=== PATIENT | male | born 1975 | race American Indian/Alaskan Native ===

== ENCOUNTER 2020-05-31 07:13 | Day surgery (SDC) | payer BC ==
[2020-05-31] MEDS ORDERED: SODIUM CHLORIDE 0.9% 1000 ML 1,000 ML ONE (07:38)
[2020-05-31] MEDS: SODIUM CHLORIDE 0.9% 1000 ML 1,000 ML IV SCH ×2 (07:46→08:55)
[2020-05-31] MEDS ORDERED: SODIUM CHLORIDE 0.9% 500 ML 500 ML IV SCH (08:00)
[2020-05-31 08:09] LABS: Basophils # (Auto) 0.1 K/mm3 (0.0-0.1); Basophils % (Auto) 0.8 % (0.0-1.8); Eosinophils # (Auto) 0.3 K/mm3 (0.0-0.4); Eosinophils % (Auto) 2.6 % (0.0-4.3); Hematocrit 47.4 % (35.5-45.6); Hemoglobin 16.2 gm/dl (11.8-15.2); Lymphocytes # (Auto) 3.2 K/mm3 (1.2-5.4); Lymphocytes % (Auto) 28.5 % (13.4-35.0); Mean Corpuscular HGB Conc 34 % (32-34); Mean Corpuscular Volume 95 fl (84-94); Monocytes # (Auto) 0.9 K/mm3 (0.0-0.8); Monocytes % (Auto) 8.4 % (0.0-7.3); Platelet Count 255 K/mm3 (140-440); Red Blood Count 4.99 M/mm3 (3.65-5.03); Red Cell Distribution Width 14.5 % (13.2-15.2)
[2020-05-31 08:19] LABS: INR 1.04 (0.87-1.13)
[2020-05-31 08:23] LABS: BUN/Creatinine Ratio 16; Blood Urea Nitrogen 16 mg/dL (9-20); Calcium 9.3 mg/dL (8.4-10.2); Hemolysis Index 4
[2020-05-31] MEDS ORDERED: fentaNYL 100 MCG/2 ML INJ ONE (08:27)
[2020-05-31] MEDS ORDERED: HEPARIN/NS 5000 UNIT/500ML 1,000 ML IR ONE (08:27)
[2020-05-31] MEDS ORDERED: VERAPAMIL 5 MG/2 ML INJ ONE (08:27)
[2020-05-31] MEDS ORDERED: LIDOCAINE (2%) 20 MG/1 ML VIAL 20 ML MDV INFILTRATI ONE (08:27)
[2020-05-31] MEDS ORDERED: HEPARIN 10,000 UNITS/10 ML VIAL ONE (08:27)
[2020-05-31] MEDS ORDERED: NITROGLYCERIN SYRINGE 3 ML ONE (08:28)
[2020-05-31] MEDS ORDERED: ASPIRIN EC 325 MG TAB PO ONE (08:30)
[2020-05-31] MEDS: MIDAZOLAM 2 MG/2 ML INJ ONE ×2 (08:55→09:02)
--- NOTE | 2020-05-31 09:33 | Cardiac Catherization Report ---
LEFT HEART CATHETERIZATION CLINICAL INFORMATION: This is a 44-year-old -[place] gentleman who has hypertension, hyperlipidemia, family history of premature CAD. He has recurrent chest pain with the ER admissions, here for suspected coronary artery disease. Procedure was done via the right with moderate sedation started at 8:55 a.m., finished at 9:15 which is 20 minutes of moderate sedation. Procedure was done via the right radial artery, sterile technique, local anesthesia, 6-Citizen [place] radial sheath inserted. PROCEDURE FINDINGS: There is a short left main, it is large and patent, bifurcates into large LAD that is patent with mild luminal irregularities. Diagonal 1, diagonal 2 are small caliber vessel, patent. Circumflex is a medium caliber vessel, patent. OM1 is a large caliber vessel, patent. OM2 is a medium caliber vessel that is patent. RCA is a large dominant vessel, proximal is patent, distal is patent, bifurcates into [id number] caliber PDA, which has a proximal 40% lesion focal lesion and PLV is patent. LV gram done in MACEDONIAN and CROWDER view shows normal LV function, EF 55-60%. LVEDP 14 mmHg, LV is 100. Aortic is 100/68. No gradient across the aortic valve on pullback. A 5-[place]izen [place] catheter was taken over guidewire, 6-[place] radial sheath was discontinued. Radial band applied. No hematoma, no bleeding. SUMMARY: Left main patent, LAD patent with mild luminal irregularities. Circumflex patent, OM1, OM2 large patent, RCA large patent, but PDA proximal 40%, nonobstructive coronary artery disease. Continue risk factor modification, details discussed with the patient, the patient's family. JOB# [id number] LEAH/WENCESLAO
[2020-05-31] MEDS ORDERED: traMADol 50 MG TAB PO PRN (09:46)
--- NOTE | 2020-05-31 09:48 | Short Stay Summary ---
Short Stay Documentation Date of service: 05/31/20 - History H&P: obtained from office - Allergies and Medications Current Medications: Allergies cephalexin [From Keflex] Adverse Reaction (Verified 05/31/20 07:39) Nausea nausea and vomiting diarrhea Penicillins Adverse Reaction (Verified 05/31/20 07:40) Nausea nausea and vomiting Sulfa (Sulfonamide Antibiotics) Adverse Reaction (Verified 05/31/20 07:39) Nausea nausea and vomiting Home Medications Medication Instructions Recorded Confirmed Last Taken Type Lisinopril [Zestril] 10 mg PO DAILY 05/31/20 05/31/20 05/30/20 History Active Medications Sodium Chloride (Nacl 0.9% 1000 Ml) 1,000 mls @ 42 mls/hr IV DIRECT ROBERT Last Admin: 05/31/20 08:55 Dose: 42 mls/hr Documented by: - Brief post op/procedure progress note Date of procedure: 05/31/20 Pre-op diagnosis: cp Post-op diagnosis: same Procedure: see report Anesthesia: local Estimated blood loss: none Pathology: none - Disposition Condition at discharge: Good Disposition: [id number]-01 TO HOME OR SELFCARE - Discharge Diagnoses (1) CAD (coronary artery disease) Status: Acute Qualifiers: Coronary Disease-Associated Artery/Lesion type: [place] artery [place] vs. transplanted heart: [place] heart Associated angina: without angina Qualified Code(s): I25.10 - Atherosclerotic heart disease of [place] coronary artery without angina pectoris (2) Hyperlipemia, mixed Status: Chronic (3) Chest pain Status: Chronic Qualifiers: Chest pain type: unspecified Qualified Code(s): R07.9 - Chest pain, unspecified (4) Smoker Status: Acute Short Stay Discharge Plan Activity: advance as tolerated Diet: low fat, low cholesterol, low salt Wound: keep clean and dry Follow up with: DR HAYLIE [Other] - 7 Days
[2020-05-31 11:50] VITALS: BP 115/68
== END 2020-05-31 12:35 | disposition home or self-care (01) ==
LOC: CATHLABREC 07:13
PROVIDERS: ATTEND Internal Medicine
DX: R07.89 Other chest pain (principal); I10 Essential (primary) hypertension; E78.5 Hyperlipidemia, unspecified; I25.10 Atherosclerotic heart disease of native coronary artery without angina pectoris; E78.2 Mixed hyperlipidemia; G43.909 Migraine, unspecified, not intractable, without status migrainosus; Z87.891 Personal history of nicotine dependence; Z98.890 Other specified postprocedural states; Z88.2 Allergy status to sulfonamides; Z88.0 Allergy status to penicillin; Z79.899 Other long term (current) drug therapy; Z88.8 Allergy status to other drugs, medicaments and biological substances
CPT/HCPCS: 36415; 80048; 85025; 85610; 85730; 93005; 93458; 99156; C1894; J1644; J2250; J3010; J7030; J7040; Q9967